=== PATIENT | female | born 1985 | race Caucasian/White ===

== ENCOUNTER 2019-12-04 19:19 | Emergency (ER) | payer OTHER, SELFPAY ==
[2019-12-04 19:23] VITALS: BP 136/85; PULSE 86; RESP 18; TEMP 36.6; O2SAT 100
--- NOTE | 2019-12-04 19:58 | ED.WOUNDLAC ---
HPI - Wound/Laceration General Chief Complaint: Wound/Laceration Stated Complaint: lac Time Seen by Provider: 12/04/19 19:31 Source: patient Mode of arrival: ambulatory Limitations: no limitations History of Present Illness HPI narrative: This is a 34-year-old female that presents emergency department for laceration to right second finger sustained just prior to arrival. Reports she was doing dishes and was cleaning a vegetable slicer. Reports she sustained a laceration to the tip of the right second finger. Reports she is 36 weeks and is due for her Tdap vaccine this . Denies decreased range of motion or numbness. Related Data Home Medications Medication Instructions Recorded Confirmed [employer] 06/16/19 diltiazem HCl 180 mg PO DAILY 06/16/19 06/16/19 Allergies Allergy/AdvReac Type Severity Reaction Status Date / Time morphine Allergy Unknown Vomiting Verified 06/16/19 15:07 SEA FOOD AdvReac Mild ABD PAIN Uncoded 10/02/16 15:40 Review of Systems Review of Systems: Narrative: CONSTITUTIONAL: Denies fever SKIN: Reports laceration MUSCULOSKELETAL: Denies joint pain, or myalgia. 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 ORIF and then hardware removal and manipulation. Family History Family History (Updated 07/29/17 @ 09:15 by DOCTOR UNKNOWN) Grandparent Family history of lung cancer Diabetes mellitus Sibling Family history of thyroid disease Social History Social History Smoking status: Never smoker Alcohol intake: never Gender identity (if verbalized by the patient): Female Exam Narrative: Exam Narrative: GENERAL: Well-appearing, well-nourished, and in no acute distress. HEAD: Normocephalic, atraumatic. EYES: EOMI. EXTREMITIES: Normal range of motion. No edema. Right 2nd finger distal phalanx palmar surface with 1.5cm linear laceration into subcutaneous tissue SKIN: Warm, dry, no rash. NEURO: No focal deficits. Alert and oriented x3. PSYCH: Normal mood and affect Course Vital Signs Vital signs: Vital Signs Temperature 97.9 F 12/04/19 19:23 Pulse Rate 86 12/04/19 19:23 Respiratory Rate 18 12/04/19 19:23 Blood Pressure 136/85 12/04/19 19:23 Pulse Oximetry 100 12/04/19 19:23 Temperature 97.9 F 12/04/19 19:23 Pulse Rate 86 12/04/19 19:23 Respiratory Rate 18 12/04/19 19:23 Blood Pressure 136/85 12/04/19 19:23 Pulse Oximetry 100 12/04/19 19:23 Procedures Laceration Laceration 1: Date: 12/04/19 Time: 21:21 Site: hand Side (If applicable): right Size (cm): 1.5 Description: linear Depth: simple, single layer Local Anesthetic: lidocaine 1% Amount of anesthesia used (mL): 4 Pre-repair: irrigated ====== Skin Level ====== Skin layer closed with: nylon Size (cm): 5-0 Number of sutures: 2 Technique: simple, interrupted ====== Subcutaneous Layer ====== ====== Muscle Layer ====== ====== Tendon Layer ====== MDM - Wound/Laceration MDM Narrative Medical decision making narrative: Patient presents the emergency department for laceration to right second finger sustained just prior to arrival. Laceration was irrigated and closed with sutures. Patient is 36 weeks and reports she was due for her Tdap vaccination this . Patient was given this today. Patient was educated on wound care. Will follow-up for suture removal in 10 to 14 days Critical Care Time Critical Care Time Critical Care Time: No
[2019-12-04] MEDS: TETANUS,DIPHTHERIA,AC PERTUSSIS ADULT (0.5 ML) BOOSTRIX IM (20:04)
[2019-12-04] MEDS: ACETAMINOPHEN 500 MG TABLET 1000 MG PO (20:05)
[2019-12-04] MEDS: LIDOCAINE HCL 1% LOCAL INJ 20 ML VIAL INFILTRATE (20:05)
[2019-12-04 21:29] VITALS: BP 132/80; PULSE 82; RESP 16; TEMP 36.9; O2SAT 98
== END 2019-12-04 21:30 | disposition home or self-care (01) ==
PROVIDERS: Emergency Provider Emergency Medicine; PCP Family Medicine
DX: S61.212A Laceration without foreign body of right middle finger without damage to nail, initial encounter (principal); K21.9 Gastro-esophageal reflux disease without esophagitis; W26.8XXA Contact with other sharp object(s), not elsewhere classified, initial encounter; Z23 Encounter for immunization
CPT/HCPCS: 12001; 90471; 90715; 99282; A9270

== ENCOUNTER 2020-01-01 09:31 | Inpatient (IN) | payer OTHER, SELFPAY ==
[2020-01-01] VITALS (122 sets, daily range): BP systolic 108–139; BP diastolic 46–92; PULSE 37–146; RESP 16; TEMP 36.5–37.3; O2SAT 72–100; BMI 29.0
--- NOTE | 2020-01-01 09:41 | PM.IMHP ---
H&P: HPI History of Present Illness Date/Time: 01/01/20 09:41 Chief complaint: Induction of Labor Narrative: Gaby Lancaster is a 34 year old female 3 para 2 who is via IVF giving an IDC of January 01, 2020. She has an unremarkable . This is a surrogate . 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 ORIF and then hardware removal and manipulation. Family History Family History Grandparent Family history of lung cancer Diabetes mellitus Sibling Family history of thyroid disease Social History Social History Smoking status: Never smoker Alcohol intake: never Substance use: never Gender identity (if verbalized by the patient): Female Spiritual care concerns: No Meds Home Medications and Allergies Home Medications Medication Instructions Recorded Confirmed Type levothyroxine 88 mcg tablet 88 mcg PO DAILY #90 tablet 09/11/19 12/14/19 Rx metoprolol tartrate 25 mg PO DAILY 12/14/19 12/14/19 History Allergies Allergy/AdvReac Type Severity Reaction Status Date / Time morphine Allergy Unknown Vomiting Verified 06/16/19 15:07 SEA FOOD AdvReac Mild ABD PAIN Uncoded 10/02/16 15:40 Exam Const: General: no acute distress Eyes: General: appearance normal, both eyes and all related structures Neck: Neck: supple and no JVD Thyroid: thyroid normal Resp: Effort & Inspection: normal respiratory effort Auscultation: clear to auscultation bilaterally Cardio: Rate: regular rate Rhythm: regular rhythm GI: Inspection: non-distended GI Palp: Yes Soft to palpation, No Tenderness to palpation present (GI) and No Guarding due to palpation present (GI) Auscultation: normal bowel sounds : External Female Exam: normal external appearance Speculum Exam - Vagina: normal appearance of the vagina Speculum Exam - Cervix: Cervical os open (cx 4/80/-1 fhts ok) Skin: General skin exam: no rashes or lesions noted Extrem: General: normal to inspection and no edema Psych: Mental Status: mental status grossly normal Affect: normal affect Assessment and Plan Additional Plan immpression: Term with favorable cervix Plan: Medical induction of labor She has an epidural candidate for
--- NOTE | 2020-01-01 09:54 | WPDANESEPP ---
Anes - Eval Pre Procedure Procedure: labor epidural Date/Time: 01/01/20 09:54 Surgeon: georges nina Pre Op Diagnosis: Induction of Labor Patient Data Age: 34 Gender: F Height: Weight: Allergies Allergy/AdvReac Type Severity Reaction Status Date / Time morphine Allergy Unknown Vomiting Verified 06/16/19 15:07 SEA FOOD AdvReac Mild ABD PAIN Uncoded 10/02/16 15:40 Home Medications Medication Instructions Recorded Confirmed Type levothyroxine 88 mcg tablet 88 mcg PO DAILY #90 tablet 09/11/19 12/14/19 Rx metoprolol tartrate 25 mg PO DAILY 12/14/19 12/14/19 History Patient hx anesthesia problems: none Family hx anesthesia problems: none PMFSH Past Medical History Medical History GERD (gastroesophageal reflux disease) Hx of migraines 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 ORIF and then hardware removal and manipulation. Family History Family History Grandparent Family history of lung cancer Diabetes mellitus Sibling Family history of thyroid disease Social History Social History Smoking status: Never smoker Alcohol intake: never Substance use: never Gender identity (if verbalized by the patient): Female Spiritual care concerns: No Exam Day of Procedure 01/01/20 09:54
[2020-01-01 10:39] LABS: Basophils Percent Auto 0.5 % (0.2-1.2); Eosinophils Absolute Auto 0.1 K/mm3 (0-0.3); Eosinophils Percent Auto 1.1 % (0-4.4); Hematocrit 30.5 % (37.0-47.0); Hemoglobin 9.7 g/dL (12.0-15.0); Immature Granulocyte Absolute 0.04 K/mm3 (0.00-0.031); Immature Granulocyte Percent A 0.5 % (0-0.5); Lymphocytes Absolute Auto 2.24 K/mm3 (0.9-3.2); Lymphocytes Percent Auto 25.3 % (18.3-44.2); Mean Corpuscular HGB Conc 31.8 g/dl (32-36); Mean Platelet Volume 11.4 fl (7.4-10.4); Monocytes Absolute Auto 0.7 K/mm3 (0.1-0.6); Monocytes Percent Auto 7.8 % (2.6-8.5); Neutrophils Absolute Auto 5.8 K/mm3 (1.3-6.7); Neutrophils Percent Auto 64.8 % (45.5-73.1); Platelet Count Result 350 k/mm3 (150-375); Red Blood Count 3.35 M/mm3 (4.2-5.4); Red Cell Distribution Width 13.7 % (11.5-14.5); White Blood Count 8.9 K/mm3 (4.5-10.0)
[2020-01-01] MEDS: LACTATED RINGERS 1,000 ML 125 ML IV CONT ×3 (11:00→17:37)
[2020-01-01] MEDS: OXYTOCIN 30 UNITS/NS 500 ML 30 UNITS/500 ML BAG IV CONT (12:47)
--- NOTE | 2020-01-01 13:02 | LDADM ---
This patient, Gaby Lancaster, was admitted to Labor/Delivery/Recovery 105 on 01/01/20 at 09:31. Plans for labor, pain management and were discussed with patient. Patient/family oriented to hospital policies and general routines including ID bracelet, bed and alarms, visiting hours, pain management, procedures, bathroom and other care routines, personal items, smoking policy, room service/diet and guest tray routines, infant security routines, and visiting hours. Patient/Family are encouraged to report perceived risks to care and to ask questions if they do not understand what they are told or what they should do. See OBIX for further documentation.
[2020-01-01] MEDS: ACETAMINOPHEN 500 MG TABLET 1000 MG PO (13:10)
--- NOTE | 2020-01-01 18:26 | P.PNOB_ITS ---
OB - PN: Subj Subjective Date/time seen: 01/01/20 18:26 cx 6.5 by rn exam comfortable w reassuring fhts OB - PN: Obj Data Labs CBC & Chem 7: 01/01/20 10:23 Labs: Laboratory Results - last 24 hr 01/01/20 01/01/20 10:23 10:23 WBC 8.9 RBC 3.35 L Hgb 9.7 L Hct 30.5 L MCV 91.0 MCH 29.0 MCHC 31.8 L RDW 13.7 Plt Count 350 MPV 11.4 H Immature Gran % (Auto) 0.5 Neut % (Auto) 64.8 Lymph % (Auto) 25.3 [place] % (Auto) 7.8 Eos % (Auto) 1.1 Baso % (Auto) 0.5 Lymph # (Auto) 2.24 [place] # (Auto) 0.7 H Eos # (Auto) 0.1 Baso # (Auto) 0.0 Abs Immat Gran (auto) 0.04 H Absolute Neuts (auto) 5.8 Absolute Nucleated RBC 0.0 Nucleated RBC % 0.0 Blood Type A Positive Antibody Screen Negative OB - PN A/P Time Spent With Patient Time: Total time spent is greater than 50% in coordination of care (as documented) at patient's floor/unit and/or counseling patient:
--- NOTE | 2020-01-01 19:54 | PM.OBPRVD ---
OB - Delivery Note Procedure Delivery date: 01/01/20 Intrapartal events: None Induction method: AROM Delivery augmentation: pitocin Delivery monitor: external FHT Route of delivery: Laceration description: Perineal - 1st Degree Delivery repair: vicryl Specimen: No Estimated blood loss (mL): 157 Anesthesia type: Epidural Disposition: floor Baby Date of : 01/01/20 Time of : 19:38 Weeks of gestation at delivery: 40 gender: Female Weight (pounds): 7 Weight (ounces): 2 presentation: vertex position: Right Occiput Anterior Placenta delivery description: Spontaneous cord vessel description: 3 Vessels score one minute: 8 score five minutes: 9
[2020-01-01] MEDS: METHYLERGONOVINE MALEATE 0.2 MG/ML VIAL IM (20:00)
[2020-01-01] MEDS: OXYTOCIN 30 UNITS/NS 500 ML 30 UNITS/500 ML BAG 125 UNITS IV CONT (20:14)
[2020-01-01] MEDS: IBUPROFEN 600 MG TABLET PO (21:14)
[2020-01-01] MEDS: ONDANSETRON INJ 4 MG/2 ML VIAL IV PUSH (21:17)
[2020-01-01] MEDS: WITCH HAZEL 40 PADS 1 PAD TOPICAL (22:13)
[2020-01-01] MEDS: BENZOCAINE 20% AER SPR (*SP) 56 GM CAN 1 SPRAY TOPICAL (22:13)
[2020-01-01] MEDS: ACETAMINOPHEN 325 MG TABLET 650 MG PO (23:11)
--- NOTE | 2020-01-01 23:44 | OBPPTRN ---
Addendum entered by Patito Tuttle RN 01/01/20 23:45: Admission time 3008 Original Note: Patient transferred to post room #286 via wheelchair. Support person present. Oriented to unit, room, information board, rooming in, admission packet and security measures. Patient verbalizes understanding, infant arrived with patient.
[2020-01-02] MEDS: IBUPROFEN 600 MG TABLET PO ×2 (05:25→13:40)
--- NOTE | 2020-01-02 06:45 | P.DS_ITS ---
DS: Admitting Diagnosis Admitting Diagnosis Admitting Diagnosis: term iup DS: Summary Time Spent with Patient Time attestation: Total time spent providing and/or coordinating discharge services: Exam Const: General: no acute distress Eyes: General: appearance normal, both eyes and all related structures Neck: Neck: supple and no JVD Thyroid: thyroid normal Resp: Effort & Inspection: normal respiratory effort Auscultation: clear to auscultation bilaterally Cardio: Rate: regular rate Rhythm: regular rhythm GI: Inspection: non-distended GI Palp: Yes Soft to palpation, No Tenderness to palpation present (GI) and No Guarding due to palpation present (GI) Auscultation: normal bowel sounds : General: Yes bladder normal to palpation External Female Exam: normal external appearance Speculum Exam - Vagina: normal vaginal discharge and No vaginal bleeding Speculum Exam - Cervix: nontender Bimanual exam- vagina & uterus: bladder normal to palpation and No Cervical tenderness present OB/external & speculum: No vaginal bleeding Skin: General skin exam: no rashes or lesions noted Extrem: General: normal to inspection and no edema Psych: Mental Status: mental status grossly normal Affect: normal affect DS: Data Data Completed and Pending Labs on day of discharge: Labs from last 24 hours 01/01/20 01/01/20 01/01/20 10:23 10:23 10:23 WBC 8.9 RBC 3.35 L Hgb 9.7 L Hct 30.5 L MCV 91.0 MCH 29.0 MCHC 31.8 L RDW 13.7 Plt Count 350 MPV 11.4 H Immature Gran % (Auto) 0.5 Neut % (Auto) 64.8 Lymph % (Auto) 25.3 [place] % (Auto) 7.8 Eos % (Auto) 1.1 Baso % (Auto) 0.5 Lymph # (Auto) 2.24 [place] # (Auto) 0.7 H Eos # (Auto) 0.1 Baso # (Auto) 0.0 Abs Immat Gran (auto) 0.04 H Absolute Neuts (auto) 5.8 Absolute Nucleated RBC 0.0 Nucleated RBC % 0.0 RPR Pending Blood Type A Positive Antibody Screen Negative Discharge Plan Discharge Attending physician on discharge: Maxime Hidalgo Discharging Clinician: Maxime Hidalgo Patient Disposition: Home, Self-Care Activity: may shower, no straining, may drive after 2 weeks and pelvic rest Diet: heart healthy Wound Care Instructions: follow printed instructions Patient Instructions: Antibiotic Form Stand Alone Forms: General Discharge Information Follow-up/Referrals: Maxime Hidalgo MD [Physician] - Discharge Medications: Continued metoprolol tartrate 25 mg Tablet 25 mg PO DAILY RF: 0 levothyroxine 88 mcg tablet 88 mcg PO DAILY Qty: 90 RF: 2 Date of admission: 01/01/20 09:31 Primary Care Provider: Carmen Ware Admitting Provider: Maxime Hidalgo Attending physician on admission: Maxime Hidalgo
--- NOTE | 2020-01-02 06:47 | PM.OBPNVD ---
OB - PN: Subj Subjective Date/time seen: 01/02/20 06:47 Patient comments: no complaints and pain well controlled OB - PN: Obj Data Labs CBC & Chem 7: 01/01/20 10:23 Labs: Laboratory Results - last 24 hr 01/01/20 01/01/20 10:23 10:23 WBC 8.9 RBC 3.35 L Hgb 9.7 L Hct 30.5 L MCV 91.0 MCH 29.0 MCHC 31.8 L RDW 13.7 Plt Count 350 MPV 11.4 H Immature Gran % (Auto) 0.5 Neut % (Auto) 64.8 Lymph % (Auto) 25.3 [place] % (Auto) 7.8 Eos % (Auto) 1.1 Baso % (Auto) 0.5 Lymph # (Auto) 2.24 [place] # (Auto) 0.7 H Eos # (Auto) 0.1 Baso # (Auto) 0.0 Abs Immat Gran (auto) 0.04 H Absolute Neuts (auto) 5.8 Absolute Nucleated RBC 0.0 Nucleated RBC % 0.0 Blood Type A Positive Antibody Screen Negative OB - PN A/P Plan day: 1 Plan: routine care, discharge home and follow up 6 weeks Time Spent With Patient Time: Total time spent is greater than 50% in coordination of care (as documented) at patient's floor/unit and/or counseling patient: Time with patient: less than 15 minutes Review of Systems Review of Systems: All systems reviewed & are unremarkable except as noted in HPI and below Exam Const: General: no acute distress Eyes: General: appearance normal, both eyes and all related structures Neck: Neck: supple and no JVD Thyroid: thyroid normal Resp: Effort & Inspection: normal respiratory effort Auscultation: clear to auscultation bilaterally Cardio: Rate: regular rate Rhythm: regular rhythm GI: Inspection: non-distended GI Palp: Yes Soft to palpation, No Tenderness to palpation present (GI) and No Guarding due to palpation present (GI) Auscultation: normal bowel sounds : General: Yes bladder normal to palpation External Female Exam: normal external appearance Speculum Exam - Vagina: normal vaginal discharge and No vaginal bleeding Speculum Exam - Cervix: nontender Bimanual exam- vagina & uterus: bladder normal to palpation and No Cervical tenderness present OB/external & speculum: No vaginal bleeding Skin: General skin exam: no rashes or lesions noted Extrem: General: normal to inspection and no edema Psych: Mental Status: mental status grossly normal Affect: normal affect
[2020-01-02 07:45] VITALS: BP 116/70; PULSE 62; RESP 16; TEMP 37.1; O2SAT 100
--- NOTE | 2020-01-02 08:15 | WPDANLDPN2 ---
Anes-Prog Note L&D Date/Time: 01/02/20 08:15 Comfortable throughout: labor and delivery Neuraxial method: epidural Epidural/Spinal procedure site: clean & non-tender Neuro status: Neuro function grossly intact. Cardiovascular status: normal Respiratory status: normal Airway patency: baseline Mental status: baseline Post-Op hydration status: normal Vital Signs: Last Vital Signs Temp 36.8 C 01/01/20 22:39 Pulse 69 01/01/20 22:39 Resp 16 01/01/20 22:39 BP 127/77 01/01/20 22:39 Pulse Ox 91 01/01/20 19:37 I/O: Intake & Output 01/01/20 01/02/20 01/02/20 23:59 07:59 15:59 Intake Total 2500 Output Total 1395 Balance 1105 Post-procedural complaints: none Patient feedback: Patient satisfied with anesthetic care.
[2020-01-02 08:16] LABS: Rapid Plasma Reagin Non-Reactive (NonReactive)
[2020-01-02] MEDS: ACETAMINOPHEN 325 MG TABLET 650 MG PO (09:16)
[2020-01-02] MEDS: MULTIVIT/MIN/PREN/FOL AC/IRON TABLET 1 TAB PO (09:16)
[2020-01-02] MEDS: POLYSACCHARIDE IRON COMPLEX 150 MG CAPSULE PO (09:16)
[2020-01-02 10:39] LABS: Hematocrit 25.6 % (37.0-47.0); Hemoglobin 8.3 g/dL (12.0-15.0)
== END 2020-01-02 16:22 | disposition home or self-care (01) | DRG 807 ==
LOC: ANHLDR 09:36 → ANHOB2 22:40
PROVIDERS: Admitting Provider Obstetrics & Gynecology; PCP Family Medicine; Visit Provider Obstetrics & Gynecology
DX: O99.284 Endocrine, nutritional and metabolic diseases complicating childbirth (principal); Z37.0 Single live birth; Z3A.40 40 weeks gestation of pregnancy; O99.62 Diseases of the digestive system complicating childbirth; K21.9 Gastro-esophageal reflux disease without esophagitis; O36.8330 Maternal care for abnormalities of the fetal heart rate or rhythm, third trimester, not applicable or unspecified; E03.9 Hypothyroidism, unspecified; O70.0 First degree perineal laceration during delivery; O77.0 Labor and delivery complicated by meconium in amniotic fluid
CPT/HCPCS: 36415; 85014; 85018; 85025; 86592; 86850; 86900; 86901; A9270; J2210; J2405; J2590; J2795; J7120